=== PATIENT | female | born 1990 | race African-American/Black ===

== ENCOUNTER 2018-04-10 19:58 | Emergency (ER) | payer MEDICAID ==
[~2018-04-10] VITALS: Ht 172.7 cm; Wt 102.1 kg
[2018-04-10 20:48] VITALS: BP 120/66
--- NOTE | 2018-04-10 21:03 | Emergency Room Report ---
History of Present Illness General Chief Complaint: Vaginal Source: Patient Present Illness HPI Ms. Nunez is a 27-year-old female who is 29 weeks who presents with toothache. She had dental work on Saturday. However she is concerned because the pharmacy would not fill her antibiotic. She was unable to get the medication in time because she is busy with school. She also has had mild vaginal spotting. Denies any contractions. Denies loss of clear fluid. She still feels baby moving. She has had regular care. She plans to deliver to the baby at [facility]. [facility] 06/25/2018 Allergies: Coded Allergies: No Known Allergies (Unverified , 04/10/18) Patient History Past Medical History: see triage record Last Menstrual Period: september 18 Now: Yes Reviewed Nursing Documentation: PMH: Agreed; PSxH: Agreed Nursing Documentation-PMH Past Medical History: No Stated History Review of Systems Constitutional: Denies: fever, malaise Respiratory: Denies: cough Gastrointestinal: Denies: abdominal pain All Other Systems: negative except mentioned in HPI Physical Exam Vital Signs Date Time Temp Pulse Resp B/P (MAP) Pulse Ox O2 Delivery O2 Flow Rate FiO2 04/10/18 20:27 98.4 89 16 120/66 99 Room Air Sp02 EP Interpretation: reviewed, normal General Appearance: no apparent distress, alert, GCS 15, non-toxic Head: normocephalic, atraumatic Eyes: bilateral eye normal inspection ENT: hearing grossly normal, normal pharynx, no angioedema, normal voice Neck: full range of motion, supple/symm/no masses Respiratory: chest non-tender, lungs clear, normal breath sounds, speaking full sentences Cardiovascular #1: regular rate, rhythm, no edema Gastrointestinal: normal bowel sounds, non tender, soft, non-distended, no guarding, no rebound Genitourinary: normal inspection Musculoskeletal: back normal, gait/station normal, normal range of motion, non- tender Neurologic: alert, oriented x3, responsive, motor strength/tone normal, sensory intact, speech normal Psychiatric: judgement/insight normal, memory normal, mood/affect normal, no suicidal/homicidal ideation Skin: normal color, no rash, warm/dry, well hydrated Medical Decision Making Diagnostic Impression: Primary Impression: Toothache Additional Impression: Third trimester bleeding ER Course 1. patient requests refill of antibiotic for dental extraction, I recommended contacting prescribing dentist 2. vaginal spotting without signs of labor, + movement, do not suspect labor, I consulted Dr. Radha COUGHLIN who agreed with supportive care and strong return precautions Last Vital Signs Date Time Temp Pulse Resp B/P (MAP) Pulse Ox O2 Delivery O2 Flow Rate FiO2 04/10/18 20:27 98.4 89 16 120/66 99 Room Air Steffanie Monte MD Apr 10, 2018 21:03
[2018-04-10 21:18] VITALS: BP 126/68
[2018-04-10 21:40] VITALS: BP 125/68
[2018-04-10 23:59] VITALS: BP 126/68
== END 2018-04-10 21:40 | disposition home or self-care (01) ==
LOC: EMR 21:23
DX: O26.893 Other specified pregnancy related conditions, third trimester (principal); K08.89 Other specified disorders of teeth and supporting structures; O26.853 Spotting complicating pregnancy, third trimester
CPT/HCPCS: 99282